=== PATIENT | female | born 1985 | race Caucasian/White ===

== ENCOUNTER → 2016-07-01 | Outpatient (CLI) | payer BC, OTHER ==
[2014-06-18 22:45] VITALS: BP 114/59
--- NOTE | 2016-07-01 11:49 | KCIC ---
Right breast ultrasound: Reason for examination: Palpable lump. Ultrasound examination was performed in the area of clinical concern. There are 2 small hypoechoic lesions with a fibrocystic appearance measuring 3.7 and 3.1 millimeters in greatest dimensions. These have a benign appearance. There are no other cystic or solid lesions seen. No abnormal appearing lymph nodes are seen in the axilla. Impression: Tiny fibrocystic type lesions at the 7 o'clock position 3 centimeters from the nipple with a benign appearance. Recommend re-evaluation in 6 months with ultrasound. BI-RADS category 3: Probably benign. This patient's information has been entered into a reminder system for the patient to be notified with the results of this examination and a target date for her next mammograms. Electronically signed by: Christie Draper MD (July 01, 2016 11:47:47)
== END | disposition home or self-care (01) ==
LOC: KCIC US 09:25
PROVIDERS: ATTEND Obstetrics & Gynecology
DX: N63 Unspecified lump in breast (principal)
CPT/HCPCS: 76641